=== PATIENT | male | born 1975 | race Two or more races ===

== ENCOUNTER 2019-05-14 23:18 | Emergency (ER) | payer OTHER ==
[~2019-05-14] VITALS: Ht 180.3 cm; Wt 97.4 kg
--- NOTE | 2019-05-14 23:47 | NUR ---
c/o abd pain x3 days, states he had constipation on Monday.
[2019-05-14] MEDS ORDERED: OMEP-110 PO (23:51)
[2019-05-14] MEDS ORDERED: MAALOX/HYOSCYAMINE/LIDOCAINE 45 ML BTL ONE (23:54)
[2019-05-14] MEDS ORDERED: ONDANSETRON ODT 4 MG ONE (23:54)
--- NOTE | 2019-05-14 23:57 | NUR ---
Medicated per MAR.
[2019-05-15] MEDS ORDERED: ONDANSETRON ODT 4 MG PO ONE
[2019-05-15] MEDS ORDERED: MAALOX/HYOSCYAMINE/LIDOCAINE 45 ML BTL PO ONE
--- NOTE | 2019-05-15 00:03 | NUR ---
pt to ultrasound
[2019-05-15 00:18] VITALS: BP 106/82
[2019-05-15 00:24] LABS: BASOPHILS # (AUTO) 0.02 x10^3/uL (0-0.1); BASOPHILS % (AUTO) 0 % (0-1); EOSINOPHILS # (AUTO) 0.21 x10^3/uL (0-0.4); EOSINOPHILS % (AUTO) 2 % (1-7); LYMPHOCYTES % (AUTO) 43 % (22-44); MD NO; MEAN CORPUSCULAR HEMOGLOBIN 31.1 pg (27.5-34.5); MEAN CORPUSCULAR VOLUME 91.4 fL (81-97); MEAN PLATELET VOLUME 8.2 fL (7.4-10.4); MONOCYTES # (AUTO) 0.77 x10^3/uL (0.2-0.8); MONOCYTES % (AUTO) 9 % (2-9); NEUTROPHILS # (AUTO) 4.01 x10^3/uL (1.8-6.8); NEUTROPHILS % (AUTO) 46 % (42-75); PLATELET COUNT 284 x10^3/uL (130-400); RED CELL DISTRIBUTION WIDTH 13.1 % (9.4-14.8)
[2019-05-15 00:35] LABS: ALANINE AMINOTRANSFERASE 25 U/L (12-78); ALBUMIN 3.1 g/dL (3.4-5.0); ANION GAP 6 mmol/L (5-15); CALCIUM 8.4 mg/dL (8.5-10.1); CHLORIDE 110 mmol/L (98-107); CREATININE 0.89 mg/dL (0.7-1.3)
[2019-05-15 00:37] LABS: ALKALINE PHOSPHATASE 63 U/L (45-117); BILIRUBIN,TOTAL 0.1 mg/dL (0.2-1.0); TOTAL PROTEIN 7.1 g/dL (6.4-8.2)
== END 2019-05-15 04:06 ==
LOC: ED 05-15 00:26
DX: K29.00 Acute gastritis without bleeding (principal); B34.9 Viral infection, unspecified; R11.2 Nausea with vomiting, unspecified
CPT/HCPCS: 36415; 76700; 80053; 83690; 85025; 99284; Q0162

== ENCOUNTER 2020-02-01 21:44 | Emergency (ER) | payer OTHER ==
[~2020-02-01] VITALS: Ht 180.3 cm; Wt 97.4 kg
[~2020-02-01 21:44] MED LIST: OMEP-110 PO
[2020-02-01] MEDS ORDERED: SODIUM CHLORIDE FLUSH 10ML SYR IVF ONE (22:00)
--- NOTE | 2020-02-01 22:10 | NUR ---
CC UA SENT TO LAB
[2020-02-01 22:22] LABS: BASOPHILS % (AUTO) 1 % (0-1); EOSINOPHILS % (AUTO) 1 % (1-7); LYMPHOCYTES % (AUTO) 25 % (22-44); MEAN CORPUSCULAR HEMOGLOBIN 30.7 pg (27.5-34.5); MEAN CORPUSCULAR HGB CONC 34.1 g/dL (33.2-36.2); MEAN PLATELET VOLUME 8.1 fL (7.4-10.4); MONOCYTES % (AUTO) 8 % (2-9); NEUTROPHILS % (AUTO) 65 % (42-75); PLATELET COUNT 309 x10^3/uL (130-400); RED BLOOD COUNT 5.18 x10^6/uL (4.38-5.82); RED CELL DISTRIBUTION WIDTH 13.4 % (9.4-14.8)
[2020-02-01 22:25] LABS: MD NO
[2020-02-01 22:26] LABS: MICROSCOPIC NOT IND
[2020-02-01 22:28] LABS: ALANINE AMINOTRANSFERASE 31 U/L (12-78); ALBUMIN 3.5 g/dL (3.4-5.0); ANION GAP 4 mmol/L (5-15); CALCIUM 8.9 mg/dL (8.5-10.1); CHLORIDE 108 mmol/L (98-107); CREATININE 1.03 mg/dL (0.7-1.3)
[2020-02-01 22:31] LABS: ALKALINE PHOSPHATASE 70 U/L (45-117); BILIRUBIN,TOTAL 0.3 mg/dL (0.2-1.0); TOTAL PROTEIN 8.2 g/dL (6.4-8.2)
[2020-02-02] MEDS ORDERED: MAALOX/HYOSCYAMINE/LIDOCAINE 45 ML BTL ONE (00:25)
[2020-02-02 00:27] VITALS: BP 114/80
[2020-02-02] MEDS ORDERED: MAALOX/HYOSCYAMINE/LIDOCAINE 45 ML BTL PO ONE (00:30)
--- NOTE | 2020-02-02 00:30 | NUR ---
PT MEDICATED PER EMAR
--- NOTE | 2020-02-02 00:43 | NUR ---
PT REPORTS PAIN IS IMPROVING WITH PO MEDICATIONS. DC EDUCATION PROVIDED, PT DEMONSTRATES UNDERSTANDING. PT AMBULATED STEADILY TO DC WITH RN AND SPOUSE
== END 2020-02-02 00:45 | disposition home or self-care (01) ==
LOC: ED 02-02 00:24
DX: K29.00 Acute gastritis without bleeding (principal); R10.31 Right lower quadrant pain; R11.2 Nausea with vomiting, unspecified; I49.3 Ventricular premature depolarization; R94.31 Abnormal electrocardiogram [ECG] [EKG]
CPT/HCPCS: 36415; 80053; 81003; 83690; 85025; 93005; 99284

== ENCOUNTER 2020-03-06 00:58 | Emergency (ER) | payer OTHER ==
[~2020-03-06] VITALS: Ht 180.3 cm; Wt 101.5 kg
[2020-03-06] MEDS ORDERED: ONDANSETRON 2MG/ML, 2ML ONE (01:39)
[2020-03-06] MEDS ORDERED: HYDROmorphone 1 MG/ML, 1ML INJ ONE ×2 (01:39→03:04)
[2020-03-06] MEDS: HYDROmorphone 2 MG/ML, 1ML IVPush PRN ×2 (01:42→03:06)
[2020-03-06 01:44] LABS: BASOPHILS % (AUTO) 1 % (0-1); EOSINOPHILS % (AUTO) 1 % (1-7); LYMPHOCYTES % (AUTO) 21 % (22-44); MEAN CORPUSCULAR HEMOGLOBIN 31.5 pg (27.5-34.5); MEAN CORPUSCULAR HGB CONC 34.4 g/dL (33.2-36.2); MEAN PLATELET VOLUME 8.3 fL (7.4-10.4); MONOCYTES % (AUTO) 8 % (2-9); NEUTROPHILS % (AUTO) 70 % (42-75); PLATELET COUNT 275 x10^3/uL (130-400); RED BLOOD COUNT 4.71 x10^6/uL (4.38-5.82); RED CELL DISTRIBUTION WIDTH 13.8 % (9.4-14.8)
[2020-03-06 01:45] LABS: MD NO
[2020-03-06 01:49] LABS: MICROSCOPIC NOT IND
--- NOTE | 2020-03-06 01:50 | NUR ---
PT STATES PAIN IN ABD X 1 DAY. PERIUMBILICAL/RLQ. +N/V. PIV PLACED, LABS DRAWN AND PT MEDICATED FOR PAIN AND NAUSEA PER EMAR. CALL LIGHT ON LAP. EDUCATED ON ITS USE.
[2020-03-06 01:56] LABS: ALANINE AMINOTRANSFERASE 49 U/L (12-78); ALBUMIN 3.6 g/dL (3.4-5.0); ANION GAP 5 mmol/L (5-15); CALCIUM 8.8 mg/dL (8.5-10.1); CHLORIDE 107 mmol/L (98-107); CREATININE 1.01 mg/dL (0.7-1.3)
[2020-03-06 01:59] LABS: ALKALINE PHOSPHATASE 67 U/L (45-117); BILIRUBIN,TOTAL 0.3 mg/dL (0.2-1.0); TOTAL PROTEIN 8.1 g/dL (6.4-8.2)
[2020-03-06] MEDS ORDERED: ONDANSETRON 2MG/ML, 2ML IVPush ONE (02:00)
[2020-03-06] MEDS ORDERED: SODIUM CHLORIDE 0.9% 1,000ML IVBOLUS ONE (02:00)
[2020-03-06] MEDS ORDERED: SODIUM CHLORIDE FLUSH 10ML SYR IVF ONE (02:00)
[2020-03-06] MEDS ORDERED: OMNIPAQUE 350 MG/ML, 100ML BOTTLE ONE (02:41)
--- NOTE | 2020-03-06 03:07 | NUR ---
PT WITH IMPROVED BUT CONTINUED PAIN IN ABD. PT MEDICATED A SECOND TIME FOR PAIN PER EMAR.
[2020-03-06 03:08] VITALS: BP 128/79
[2020-03-06] MEDS ORDERED: MAALOX/HYOSCYAMINE/LIDOCAINE 45 ML BTL ONE (03:42)
[2020-03-06] MEDS ORDERED: MAALOX/HYOSCYAMINE/LIDOCAINE 45 ML BTL PO ONE (04:00)
--- NOTE | 2020-03-06 04:05 | NUR ---
PT PROVIDED GI COCKTAIL. PT VERBALIZED RELIEF OF PAIN. GIVE RX FOR PAIN MEDS AT HOME AND REFERRAL FOR GI
== END 2020-03-06 04:07 | disposition home or self-care (01) ==
LOC: ED 01:49
DX: K29.70 Gastritis, unspecified, without bleeding (principal); R10.13 Epigastric pain; R11.2 Nausea with vomiting, unspecified
CPT/HCPCS: 36415; 74177; 80053; 81003; 83690; 85025; 96374; 96375; 96376; 99285; J1170; J2405; J7030; Q9967

== ENCOUNTER 2020-03-06 16:39 | Emergency (ER) | payer OTHER ==
[~2020-03-06] VITALS: Ht 170.2 cm; Wt 102.6 kg
[2020-03-06] MEDS ORDERED: MAALOX/HYOSCYAMINE/LIDOCAINE 45 ML BTL PO ONE (19:30)
--- NOTE | 2020-03-06 20:16 | NUR ---
PT AMBULATORY TO ROOM WITH STEADY GAIT AT THIS TIME.
[2020-03-06] MEDS ORDERED: MAALOX/HYOSCYAMINE/LIDOCAINE 45 ML BTL ONE (20:21)
--- NOTE | 2020-03-06 20:32 | NUR ---
PT HAS A HX OF GERD, STATES THIS PAIN IS SIMILAR IN THE PAST. HE TAKES OTC OMEPRAZOLE DAILY, NO LONGER HELPING CONTROL THE PAIN. STATES THE PAIN IS SHARP AND BURNING AND HAS MOVED FROM RUQ TO EPIGASTRIC AREA. RX NORCO FROM LAST ER VISIT NOT HELPING WITH PAIN. PT ALSO COMPLAINING OF BILATERAL LOWER BACK PAIN. PT ALREADY HAS GI APPOINTMENT SET FOR 03/31, BUT STATES "IT'S GOING TO BE 24 DAYS OF HELL TO GET THERE."
[2020-03-06] MEDS ORDERED: FAMOTIDINE 20 MG TABLET PO ONE (21:00)
[2020-03-06] MEDS ORDERED: OMEPRAZOLE 20 MG CAPSULE.DR PO ONE (21:00)
[2020-03-06] MEDS ORDERED: OMEPRAZOLE 20 MG CAPSULE.DR ONE (21:06)
[2020-03-06] MEDS ORDERED: FAMOTIDINE 20 MG TABLET ONE (21:06)
[2020-03-06 21:10] VITALS: BP 129/79
== END 2020-03-06 22:29 | disposition home or self-care (01) ==
LOC: ED 21:00
DX: K26.3 Acute duodenal ulcer without hemorrhage or perforation (principal); R10.13 Epigastric pain; R11.2 Nausea with vomiting, unspecified; K59.00 Constipation, unspecified; R07.89 Other chest pain
CPT/HCPCS: 71046; 93005; 99284